=== PATIENT | female | born 1980 ===

== ENCOUNTER 2019-04-03 17:06 | Emergency (ER) | payer SELFPAY ==
[~2019-04-03] VITALS: Ht 165.1 cm; Wt 106.4 kg
[2019-04-03 17:14] VITALS: Ht 165.1 cm; Wt 106.4 kg
[2019-04-03] MEDS ORDERED: GLUCOPHAGE1000 MG PO ×2 (17:16→17:30)
[2019-04-03] MEDS ORDERED: METOPROLOL TART50 MG PO ×2 (17:16→17:30)
[2019-04-03 18:09] VITALS: BP 160/89
== END 2019-04-03 18:10 | disposition home or self-care (01) ==
LOC: D.ER 17:06
DX: Z76.0 Encounter for issue of repeat prescription (principal); E11.9 Type 2 diabetes mellitus without complications; I10 Essential (primary) hypertension; Z72.0 Tobacco use; Z79.84 Long term (current) use of oral hypoglycemic drugs